=== PATIENT | female | born 1995 | race Caucasian/White ===

== ENCOUNTER 2020-01-23 09:54 | Outpatient (CLI) | payer OTHER ==
--- NOTE | 2020-01-23 10:25 | ULT ---
EXAM: US Abdominal CLINICAL HISTORY: Vomiting. Nausea.. COMPARISON: None. FINDINGS: Pancreas: Visualized pancreatic parenchyma has a normal echotexture. IVC: Visualized IVC has a normal caliber. Aorta: Visualized aorta has a normal caliber. Liver:Appropriate hepatic parenchymal echotexture. No hepatic masses or intrahepatic biliary dilatati on. Contour of the hepatic margin is maintained. Right hepatic lobe measures 19.2 cm. Gallbladder: No sonographic evidence of cholelithiasis, gallbladder wall thickening or pericholecysti c fluid. Hickey's sign:Negative. CBD: 0.35 cm common bile duct diameter. Portal vein: Patent. Appropriate directional flow. Right kidney: Normal cortical echotexture. No hydronephrosis Right kidney measuring 10.7 x 3.9 x 4. 0 cm in length. Left kidney: Normal cortical echotexture. No hydronephrosis. Left kidney measuring 4.7 x 7.5 x 10.9 cm in length Spleen: Normal echotexture, measuring 9.9 cm. IMPRESSION: Unremarkable exam. Transcribed Date/Time: 01/23/2020 11:28 AM
--- NOTE | 2020-01-23 10:58 | ULT ---
EXAM: US Pelvic Transvag W Doppler PROVIDED CLINICAL HISTORY: Right lower quadrant pain COMPARISON: None FINDINGS: The uterus measures about 6.6 x 2.9 x 4.2 cm and demonstrates a normal sonographic appearance. Endome trial thickness is about 7 mm. The left ovary was not discretely identified. The right ovary appears sonographically normal. Color D oppler and spectral analysis of the right ovarian waveforms demonstrates normal flow. There is a dilated blind-ending tubular structure with bowel signature in the right lower quadrant wh ich demonstrates noncompressibility. There is ill-defined surrounding diminished echogenicity measuring at least 6.9 cm. IMPRESSION: Findings highly suspicious for acute appendicitis with periappendiceal abscess/phlegmon. Findings wer e communicated to Dr. Abreu 10:55 AM 01/23/2020. The patient was directed to the emergency department at the request of the referring clinician.
== END 2020-01-23 09:55 | disposition home or self-care (01) ==
LOC: BICULT 09:54
PROVIDERS: ATTEND Family Medicine
DX: R10.31 Right lower quadrant pain (principal)
CPT/HCPCS: 76856; 93975

== ENCOUNTER 2020-01-23 11:31 | Inpatient (IN) | payer OTHER ==
[~2020-01-23 11:31] MED LIST: Iopamidol-370 76% 500 ML 1 ML ONE
[2020-01-23 12:25] LABS: #Eosinphils 0.2 thou/uL (0.0-0.7); #Lymphocytes 1.7 thou/uL (1.20-3.40); #Neutrophils 11.2 thou/uL (1.40-6.50); %Basophils 0.3 % (0.0-1.0); %Eosinophils 1.2 % (0.0-10.0); %Lymphocytes 11.8 % (21.0-51.0); %Monocytes 6.8 % (0.0-10.0); %Neutrophils 79.9 % (42.0-75.0); Hemoglobin 12.3 g/dL (12.0-16.0); Mean Corpuscular HGB CONC 32.8 g/dL (32.0-36.0); Mean Corpuscular Hemoglobin 27.7 pg (27.0-31.0); Mean Corpuscular Volume 84.5 fL (78.0-98.0); Mean Platelet Volume 7.1 fL (7.4-10.4); Platelet Count 564 thou/uL (130-400); RBC Distribution Width 12.8 % (11.5-14.5); Red Blood Cell (RBC) Count 4.42 mill/uL (4.20-5.40)
[2020-01-23 12:46] LABS: ALT (SGPT) 482 U/L (8-55); AST (SGOT) 204 U/L (5-34); Albumin 3.7 g/dL (3.5-5.0); Alkaline Phosphatase 271 U/L (40-110); Anion Gap 12 mmol/L (10-20); BUN (Urea Nitrogen) 5 mg/dL (7.0-18.7); Bilirubin, Total 1.1 mg/dL (0.2-1.2); Calc. Creatinine Clearance 0 mL/min (70-130); Calcium 9.2 mg/dL (7.8-10.44); Carbon Dioxide 25 mmol/L (22-29); Chloride 100 mmol/L (98-107); Estimated GFR-MDRD Greater than 90; Globulin 4.6 g/dL (2.4-3.5); Glucose 91 mg/dL (70-105); Protein, Total 8.3 g/dL (6.0-8.3); Sodium 133 mmol/L (136-145)
[2020-01-23 13:51] LABS: BHCG - Serum Negative (NEGATIVE); Pregs Control Background? CLEAR/WHITE (CLR/WHITE); Pregs Control Bar Appear? YES (CONTROL BAR)
--- NOTE | 2020-01-23 14:36 | CT ---
CT ABDOMEN AND PELVIS WITH IV CONTRAST: INDICATION: Right lower quadrant pain. FINDINGS: Liver unremarkable. There is a splenic cyst in the superior spleen measuring approximately 1.3 cm. Pancreas unremarkable. Adrenal glands and kidneys unremarkable. Small bowel loops show nonspecific fluid-filled distention. There is inflammatory process in the right lower quadrant. This involves the distal and terminal ile um and the cecum. There is a fluid-dense collection with surrounding enhancement with internal gas i ndicating a small abscess measuring in the 2.5 cm range. Appendix is not well delineated within this inflammatory process. There are enlarged mesenteric lymph nodes throughout the mesentery most promi nent in the right lower quadrant. Images through the pelvis show a mildly distended bladder and unremarkable uterus. A small amount of fluid in the cul-de-sac. IMPRESSION: Severe inflammatory process in the right lower quadrant involving the distal and terminal ileum and c ecum. Evidence of a small abscess collection. Findings would most likely represent ruptured appendi citis. Findings related to Dr. Humphreys. CODE CR
[2020-01-23] MEDS ORDERED: Dextrose 5% in Water 1,000 ML IV PRN (15:29)
[2020-01-23] MEDS ORDERED: Dextrose 50% Abboject 50 ML SYRINGE SLOW IVP PRN (15:29)
[2020-01-23] MEDS ORDERED: traMADol HCl 50 MG TAB PO PRN (15:35)
[2020-01-23] MEDS ORDERED: Morphine 4 MG/ML VIAL SLOW IVP PRN (15:35)
[2020-01-23] MEDS ORDERED: Acetaminophen 325 MG TAB PO PRN (15:35)
[2020-01-23] MEDS ORDERED: Piperacillin/Tazobactam 4.5 GM VIAL ONE (15:40)
--- NOTE | 2020-01-23 16:46 | HP ---
HISTORY OF PRESENT ILLNESS: Ms. Melendez is a 24-year-old woman who presented to the emergency department, complaining of insidious onset periumbilical abdominal pain, which started approximately 1 month ago. At onset, pain was described as a dull ache, rated at 4/10. The pain is associated with intermittent episodes of nausea and emesis. The patient has taken [id number]-[id number] remedies and failed to resolve the abdominal pain. Over the last 1 week, the pain has intensified and has localized to the right lower quadrant. Pain is now associated with diarrhea. The patient denies any unexplained weight loss. She did have a bout of fever, maximum temperature of 102 degrees Fahrenheit, about 2 weeks ago. She now rates her pain at 8/10 to 9/10. PAST MEDICAL HISTORY: She denies any previous medical problems. PAST SURGICAL HISTORY: She denies any previous surgeries. 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 She admits to occasional intake of ethanol in moderate amounts, but denies any cigarette smoking or illicit drug abuse. FAMILY HISTORY: She denies any family history of diabetes mellitus, hypertension, heart disease, inflammatory bowel disease, or cancer. CURRENT MEDICATIONS: None except for oral control pills. ALLERGIES: TO [employer], WHICH GIVES OUT HIVES. REVIEW OF SYSTEMS: Ten-point review of systems essentially unremarkable except as stated in past medical history and chief complaint. PHYSICAL EXAMINATION: GENERAL: This reveals a 24-year-old normally developed woman who is otherwise coherent and interactive and appears stated age. The patient is alert and oriented x3. She appears to be in no acute distress at the time of my evaluation. VITAL SIGNS: Blood pressure 117/79, pulse is 116, respiratory rate is 16, temperature is 98.4 degrees Fahrenheit, and oxygen saturation 97% on room air. HEENT: Normocephalic and atraumatic. HEART: Regular rate with sinus tachycardia. No murmurs or gallops auscultated. LUNGS: Clear to auscultation bilaterally. Breathing regular and nonlabored. ABDOMEN: Soft with right lower quadrant tenderness to palpation. She has no abdominal distention present. She has a negative Rovsing sign. Liver and spleen otherwise nonpalpable below costal margins. NEUROLOGIC: No focal deficits present. LABORATORY FINDINGS: Today includes a CBC with 14,000 white blood cells, hemoglobin and hematocrit 12.3 and 37.4 respectively, and platelet count is 564,000. Metabolic profile: Sodium 133, potassium 4.0, chloride is 100, bicarb is 25, BUN is 5, creatinine 0.74, and glucose 91. Total bilirubin is 1.1, AST and ALT are elevated at 204 and 482 respectively, and alkaline phosphatase is also elevated at 271. I have personally reviewed all radiographic studies including abdominal ultrasound, which is essentially unremarkable. The common bile duct is normal in diameter for this patient's age at 3.5 mm. No other acute intra-abdominal pathology is evident on the basis of the ultrasound. CT scan of the abdomen and pelvis, which was obtained today, reveals severe inflammation of the right lower quadrant involving the distal and terminal ileum as well as the cecum. There is a 2.5-cm fluid collection adjacent to the cecum, likely an abscess. The appendix itself is not visualized. IMPRESSION: Likely acute appendicitis with rupture and periappendiceal abscess. PLAN: 1. Broad-spectrum antibiotic therapy. The patient will be taken to the operating room for laparoscopic appendectomy and drainage of periappendiceal abscess. 2. The above findings and plan has been discussed with the patient who indicates understanding of information given. 3. I have answered her questions. 4. The patient is going to consent for this admission and surgical intervention. Job ID: [id number]
[2020-01-23 17:31] LABS: Bilirubin Negative (Negative); Blood, Urine Negative (Negative); Clarity Clear (Clear); Glucose, Urine (Dipstick) Normal (Negative); Ketone, Urine Negative (Negative); Leukocyte Negative Leu/uL (Negative); Nitrite Negative (Negative); Protein, Urine (Dipstick) Negative (Neg-Trace); Urobilinogen Normal mg/dL (Less than 2)
[2020-01-23 17:33] LABS: Specific Gravity, Urine 1.044 (1.002-1.036)
[2020-01-23] MEDS: Sodium Chloride 0.9% 1,000 ML IV SCH (18:13)
[2020-01-23] MEDS: Ibuprofen 100 MG/5 ML UDCUP PO SCH (18:29)
[2020-01-23 18:39] VITALS: BMI 25.7
[2020-01-23] MEDS: Enoxaparin Sodium 40 MG/0.4 ML SYRINGE SC SCH (20:10)
[2020-01-23] MEDS: Piperacillin/Tazobactam 3.375 GM in Sodium Chloride 0.9% 100 ML IVPB SCH (21:09)
[2020-01-24] MEDS: Ibuprofen 100 MG/5 ML UDCUP PO SCH ×3 (01:12→18:26)
[2020-01-24] MEDS: Piperacillin/Tazobactam 3.375 GM in Sodium Chloride 0.9% 100 ML IVPB SCH ×4 (04:35→22:38)
[2020-01-24] MEDS: Sodium Chloride 0.9% 1,000 ML IV SCH ×3 (04:35→21:03)
[2020-01-24 08:38] LABS: #Eosinphils 0.2 thou/uL (0.0-0.7); #Lymphocytes 1.3 thou/uL (1.20-3.40); #Monocytes 0.6 thou/uL (0.11-0.59); #Neutrophils 4.1 thou/uL (1.40-6.50); %Basophils 0.4 % (0.0-1.0); %Eosinophils 3.4 % (0.0-10.0); %Lymphocytes 21.5 % (21.0-51.0); %Monocytes 9.8 % (0.0-10.0); Hemoglobin 11.2 g/dL (12.0-16.0); Mean Corpuscular HGB CONC 33.1 g/dL (32.0-36.0); Mean Corpuscular Volume 84.4 fL (78.0-98.0); Mean Platelet Volume 7.3 fL (7.4-10.4); Platelet Count 427 thou/uL (130-400); RBC Distribution Width 12.7 % (11.5-14.5); Red Blood Cell (RBC) Count 3.99 mill/uL (4.20-5.40); White Blood Cell (WBC) Count 6.3 thou/uL (4.8-10.8)
[2020-01-24 08:39] LABS: Anion Gap 13 mmol/L (10-20); BUN (Urea Nitrogen) 4 mg/dL (7.0-18.7); Calc. Creatinine Clearance 139 mL/min (70-130); Calcium 8.5 mg/dL (7.8-10.44); Carbon Dioxide 23 mmol/L (22-29); Chloride 107 mmol/L (98-107); Estimated GFR-MDRD Greater than 90; Glucose 86 mg/dL (70-105); Sodium 139 mmol/L (136-145)
[2020-01-24] MEDS ORDERED: Ketorolac Tromethamine 30 MG/ML VIAL ONE (08:56)
[2020-01-24] MEDS ORDERED: PHENYLEPHRINE-NS 100 MCG/ML 10 ML SYRINGE ONE (08:56)
[2020-01-24] MEDS ORDERED: Ondansetron PF 4 MG/2 ML Vial ONE (08:56)
[2020-01-24] MEDS ORDERED: Lidocaine 1% PF 5 ML VIAL ONE (08:56)
[2020-01-24] MEDS ORDERED: Glycopyrrolate 0.2 MG/ML 5 ML SYRINGE ONE (08:56)
[2020-01-24] MEDS ORDERED: Dexamethasone 20 MG/5 ML VIAL ONE (08:56)
[2020-01-24] MEDS ORDERED: PROPOFOL 200 MG/20 ML VIAL ONE (08:56)
[2020-01-24] MEDS ORDERED: Rocuronium Bromide 10 MG/ML (10ML VIAL) ONE (08:56)
[2020-01-24] MEDS ORDERED: FLU VACC QS2020-21(6MOS UP)/PF 60 MCG/0.5 ML SYRINGE IM ONE (09:00)
[2020-01-24] MEDS ORDERED: Promethazine HCl 25 MG/ML VIAL SLOW IVP PRN ×2 (10:01→15:56)
[2020-01-24] MEDS ORDERED: Promethazine HCl 25 MG/ML VIAL IM PRN ×2 (10:01→15:56)
[2020-01-24] MEDS ORDERED: Meperidine HCl/PF 25 MG/ML VIAL SLOW IVP PRN ×2 (10:01→15:56)
[2020-01-24] MEDS ORDERED: Ondansetron HCl/PF 4 MG/2 ML Vial IVP PRN ×2 (10:01→15:56)
[2020-01-24] MEDS ORDERED: Midazolam HCl 2 mg/2 ml Vial ONE (11:27)
[2020-01-24] MEDS ORDERED: Fentanyl 100 MCG/2 ML VIAL ONE (11:27)
[2020-01-24] MEDS ORDERED: HYDROmorphone 0.5 MG/0.5 ML SYRINGE ONE ×2 (11:27→13:45)
[2020-01-24] MEDS ORDERED: Lidocaine 2% Jelly 5 ML TUBE ONE (11:27)
[2020-01-24] MEDS ORDERED: Bupivacaine/Epinephrine 0.25% 30 ML VIAL ONE (11:58)
[2020-01-24] MEDS ORDERED: Piperacillin/Tazobactam 3.375 GM VIAL ONE (12:38)
[2020-01-24] MEDS ORDERED: PACU-Morphine 4MG/ML VIAL SLOW IVP PRN (15:56)
[2020-01-24] MEDS ORDERED: Morphine Sulfate 2 MG/ML SYRINGE SLOW IVP PRN (15:56)
[2020-01-24] MEDS: Ketorolac Tromethamine 30 MG/ML VIAL IVP SCH ×2 (18:10→23:10)
[2020-01-24] MEDS: traMADol HCl 50 MG TAB PO PRN (20:56)
[2020-01-24] MEDS: Enoxaparin Sodium 40 MG/0.4 ML SYRINGE SC SCH (20:57)
--- NOTE | 2020-01-24 21:57 | OP ---
DATE OF PROCEDURE: 01/24/2020 PREOPERATIVE DIAGNOSIS: Acute chronic appendicitis with periappendiceal abscess. POSTOPERATIVE DIAGNOSIS: Acute chronic appendicitis with periappendiceal abscess. OPERATION PERFORMED: Laparoscopic drainage of periappendiceal abscess and debridement of multiple intraperitoneal necrotic tissue. Appendix was not identified. ANESTHESIA: General endotracheal. ESTIMATED BLOOD LOSS: 30 mL. FLUIDS: 2000 mL crystalloids. COUNTS: Sponge and instrument counts were verified as correct x2. COMPLICATIONS: None apparent at the time of operation. INDICATIONS FOR OPERATION: A 24-year-old woman who presented with approximately one month history of what started as a periumbilical abdominal pain, which has settled in the right lower quadrant. One week prior to this admission, the patient presented with worsening abdominal pain associated with fever, nausea and vomiting. Clinical and radiographic examination were consistent with significant amount of an inflammation involving the terminal ileum and cecum. Appendix was not identified. However, there was a small abscess anterior to the cecum in the right lower quadrant. This patient was brought to the operating room for laparoscopic appendectomy and drainage of pelvic abscess. Findings are consistent with extensive amount of inflammation involving the distal ileum and cecum. There was indeed a small abscess anterior to the cecum, which was drained. Cultures were taken. Extensive amount of necrotic tissue was debrided in a piecemeal fashion. However, the appendix itself was not identified. DESCRIPTION OF PROCEDURE: Informed consent was obtained from the patient, who was brought to the operating room, placed in supine position. Following general anesthesia, abdomen was sterilely prepped and draped in usual fashion. The skin below the umbilicus was infiltrated with 0.25% Marcaine with epinephrine. A small curvilinear infraumbilical incision was made using 11 scalpel. Umbilical stalk was grasped with Charito and elevated. Veress needle was inserted through the incision and placed in the peritoneal cavity through which the abdomen was insufflated with 3 L of CO2 gas. Intraabdominal pressure noted at 2 mmHg. Following abdominal insufflation, Veress needle was removed and a 5 mm trocar introduced using a Visiport under laparoscopy. Laparoscopy confirmed proper placement of the port. no injuries to underlying structures. Additional laparoscopy reveals right lower quadrant completely encased by omental adhesions. Under direct laparoscopy, two 5 mm suprapubic and left lower quadrant ports were placed after the overlying skin were infiltrated with 0.25% Marcaine with epinephrine and appropriate incision was made. The patient was placed in a Trendelenburg position, rotated to her left. I introduced a Prestige grasper through the left lower quadrant port site, using this to bluntly take down omental adhesions. The distal ileum was completely welded to the right lateral gutter and was bluntly taken down using the Prestige grasper in addition to Endo suction catheter. Once the distal ileum was identified and mobilized off the right lateral gutter it was followed to the markedly thick-walled and inflamed cecum. There was extensive amount of necrotic tissue which were sharply debrided off the cecum and small bowel. A small abscess cavity was entered anterior to the cecum. Cultures were taken. This was irrigated and cleared using suction. Multiple attempts to identify the appendix was unsuccessful. In fact. we were able to mobilize the cecum medially. I did not see any retrocecal appendix. Small bowel was run from the ileocecal junction down to proximal 2 feet, finding no Meckel diverticulum. Finding no other pathology laparoscopy was terminated. A markedly inflamed uterus was noted in anatomic location. No pelvic abscesses were present. The left lower quadrant port was extended to allow removal of multiple necrotic tissues which were delivered of the abdominal cavity using the EndoCatch. Once laparoscopy was terminated, fascia of the left lower quadrant port site was closed using Endo closure device and 0 Vicryl suture on the laparoscopy. The abdomen was desufflated. All ports and instruments were removed and accounted for. Prior to removal of the ports, a #19 Alfred drain was introduced into the right lower quadrant with the tip residing in the right lateral gutter/the infra hepatic space. The drain was allowed to exit the abdominal cavity through the suprapubic port site. This was secured to anterior abdominal wall using 2-0 silk suture. All skin incisions were closed using 4-0 Monocryl suture in subcuticular fashion. Dermabond was applied over incisional closure. The patient tolerated the operation without any apparent complication and was returned to recovery room in satisfactory condition. Job ID: [id number]
[2020-01-24] MEDS ORDERED: Ondansetron PF 4 MG/2 ML Vial IVP PRN (22:43)
--- NOTE | 2020-01-25 00:59 | PRG ---
DATE OF SERVICE: 01/24/2020 SUBJECTIVE: The patient was seen during evening rounds, awake, alert, no distress. The patient is postop day 0, status post laparoscopic drainage of a periappendiceal abscess and debridement of multiple intraperitoneal necrotic tissue. The patient is tolerating a regular diet at this time. The patient reports pain after the nurse milked the STAN drain. OBJECTIVE: VITAL SIGNS: Stable, afebrile. GENERAL: Well-appearing young female, awake, alert, in no distress. RESPIRATORY: Good inspiratory and expiratory effort. No respiratory distress. ABDOMEN: Soft, mild tenderness with palpation, no peritoneal signs, nondistended. STAN drain in place with minimal output. PLAN: Continue supportive care and pain regimen. Continue clear liquid diet as tolerated. Increase activity. Job ID: [id number]
[2020-01-25] MEDS: Piperacillin/Tazobactam 3.375 GM in Sodium Chloride 0.9% 100 ML IVPB SCH ×4 (04:59→21:00)
[2020-01-25] MEDS: Ketorolac Tromethamine 30 MG/ML VIAL IVP SCH ×4 (05:01→23:05)
[2020-01-25 05:21] LABS: #Eosinphils 0.1 thou/uL (0.0-0.7); #Lymphocytes 1.9 thou/uL (1.20-3.40); #Monocytes 0.8 thou/uL (0.11-0.59); #Neutrophils 4.5 thou/uL (1.40-6.50); %Basophils 0.5 % (0.0-1.0); %Eosinophils 1.2 % (0.0-10.0); %Lymphocytes 25.8 % (21.0-51.0); %Monocytes 10.4 % (0.0-10.0); %Neutrophils 62.2 % (42.0-75.0); Hemoglobin 10.6 g/dL (12.0-16.0); Mean Corpuscular HGB CONC 31.6 g/dL (32.0-36.0); Mean Corpuscular Hemoglobin 27.2 pg (27.0-31.0); Mean Corpuscular Volume 86.2 fL (78.0-98.0); Mean Platelet Volume 7.5 fL (7.4-10.4); Platelet Count 414 thou/uL (130-400); RBC Distribution Width 12.7 % (11.5-14.5); Red Blood Cell (RBC) Count 3.89 mill/uL (4.20-5.40); White Blood Cell (WBC) Count 7.2 thou/uL (4.8-10.8)
[2020-01-25 05:45] LABS: ALT (SGPT) 308 U/L (8-55); AST (SGOT) 130 U/L (5-34); Albumin 2.9 g/dL (3.5-5.0); Alkaline Phosphatase 184 U/L (40-110); Anion Gap 11 mmol/L (10-20); BUN (Urea Nitrogen) 4 mg/dL (7.0-18.7); Bilirubin, Direct 0.5 mg/dL (0.1-0.3); Bilirubin, Total 0.8 mg/dL (0.2-1.2); Calc. Creatinine Clearance 150 mL/min (70-130); Calcium 8.2 mg/dL (7.8-10.44); Carbon Dioxide 24 mmol/L (22-29); Chloride 106 mmol/L (98-107); Estimated GFR-MDRD Greater than 90; Glucose 90 mg/dL (70-105); Phosphorus 4.4 mg/dL (2.3-4.7); Potassium 4.1 mmol/L (3.5-5.1); Protein, Total 6.3 g/dL (6.0-8.3); Sodium 137 mmol/L (136-145)
[2020-01-25] MEDS: Sodium Chloride 0.9% 1,000 ML IV SCH ×2 (05:55→18:01)
[2020-01-25] MEDS: traMADol HCl 50 MG TAB PO PRN (09:03)
[2020-01-25] MEDS: traMADol HCl 50 MG TAB PO SCH ×3 (11:32→23:05)
[2020-01-25] MEDS: Acetaminophen 500 MG TAB PO SCH ×3 (11:33→23:04)
[2020-01-25] MEDS: Enoxaparin Sodium 40 MG/0.4 ML SYRINGE SC SCH (20:59)
[2020-01-25] MEDS: Famotidine 20 MG TAB PO SCH (21:59)
--- NOTE | 2020-01-26 00:04 | PRG ---
DATE OF SERVICE: 01/25/2020 SUBJECTIVE: Patient was seen during evening rounds, resting comfortably. The patient is postop day #1 status post laparoscopic drainage of a periappendiceal abscess. The patient's nurse reports that she ambulated several times today. Also reports having bowel movements. The patient's pain is well controlled. The patient is tolerating a clear-liquid diet. PLAN: Continue pain regimen and supportive care. Continue to have patient ambulate frequently. We will increase diet in the morning as tolerated. We will discontinue the patient's maintenance IV fluids as she is tolerating her clear liquids. Job ID: [id number]
[2020-01-26] MEDS: Piperacillin/Tazobactam 3.375 GM in Sodium Chloride 0.9% 100 ML IVPB SCH ×2 (04:59→09:02)
[2020-01-26] MEDS: Ketorolac Tromethamine 30 MG/ML VIAL IVP SCH (05:02)
[2020-01-26] MEDS: traMADol HCl 50 MG TAB PO SCH ×2 (05:02→11:17)
[2020-01-26] MEDS: Acetaminophen 500 MG TAB PO SCH ×2 (05:02→10:10)
[2020-01-26] MEDS ORDERED: Saccharomyces boulardii 250 MG CAP PO SCH (09:00)
[2020-01-26] MEDS: Famotidine 20 MG TAB PO SCH (09:02)
[2020-01-26] MEDS ORDERED: Ibuprofen 200 MG TAB PO PRN (09:08)
[2020-01-26] MEDS: metroNIDAZOLE 500 MG TAB PO SCH ×2 (10:10→15:07)
--- NOTE | 2020-01-26 12:56 | PQF ---
CLINICAL DOCUMENTATION CLARIFICATION FORM: Dear Dr. PHILIPP MUNSON Date: 01-26-20 Please exercise your independent, professional judgment in responding to the clarification form. Clinical indicators are provided on the bottom of this form for your review. Please check appropriate box(es): [ ] Excisional Debridement: [ ] Excised [ ] Cut away [ ] Other: Depth / layer: (deepest layer of debridement): [ ] Skin [ ] Subcutaneous [ ] Fascia [ ] Muscle [ ] Tendon [ ] Bone Appearance of wound: (e.g., down to fresh bleeding tissue, etc.) Margins: (please specify): / x x Instruments used: [ ] Scissors [ ] Scalpel [ ] Other: [ ] Non-excisional Debridement: (Removal by crushing, brushing, chemical, or washing) Depth / layer: (deepest layer of debridement): [ ] Skin [ ] Subcutaneous [ ] Fascia [ ] Muscle [ ] Tendon [ ] Bone [ ] Incision and Drainage only (No Debridement): Depth: [ ] Skin [ ] Subcutaneous [ ] Fascia [ ] Muscle [ ] Tendon [ ] Bone [ ] Other procedure diagnosis [ ] Unable to determine For continuity of documentation, please document condition throughout progress notes and discharge summary. Thank You. To be completed by CDI/Coding staff for physician review: CLINICAL INDICATORS - SIGNS / SYMPTOMS / LABS / RESULTS AND LOCATION IN EMR: OPERATIVE NOTE 01-23-20 DR. MUNSON: LAPAROSCOPIC DRAINAGE OF PERIAPPENDICEAL ABSCESS AND DEBRIDEMENT OF MULTIPLE INTRAPERITONEAL NECROTIC TISSUE. OPERATIVE NOTE 01-23-20 DR. MUNSON: THERE WAS EXTENSIVE AMOUNT OF NECROTIC TISSUE WHICH WERE SHARPLY DEBRIDED OFF THE CECUM AND SMALL BOWEL. RISK FACTORS / RESULTS AND LOCATION IN EMR: OPERATIVE NOTE 01-23-20 DR. MUNSON: ACUTE CHRONIC APPENDICITIS WITH PERIAPPENDICEAL ABSCESS TREATMENTS / RESULTS AND LOCATION IN EMR: OPERATIVE NOTE 01-23-20 DR. OHAJU: LAPAROSCOPIC DRAINAGE OF PERIAPPENDICEAL ABSCESS AND DEBRIDEMENT OF MULTIPLE INTRAPERITONEAL NECROTIC TISSUE. CDS Signature: Johanny Becerra Phone #: [phone] Date: 01-26-20 This is a permanent part of the Medical Record [facility]
[2020-01-26 16:23] VITALS: BP 113/80; TEMP 98.5
--- NOTE | 2020-01-27 10:46 | DIS ---
DATE OF ADMISSION: 01/23/2020 DATE OF DISCHARGE: 01/26/2020 ADMISSION DIAGNOSIS: Egcxv-[id number]-svhghjo appendicitis. DISCHARGE DIAGNOSIS: Rfpkw-qu-mvqfunu appendicitis. CONSULTING PHYSICIAN: None. PROCEDURES: The patient went to the OR on January 24, 2020, and had a laparoscopic drainage of periappendiceal abscess and debridement of multiple intraperitoneal necrotic tissue. HOSPITAL COURSE: The patient is a 24-year-old female presented to the emergency department after having several weeks of intermittent periumbilical and then right lower quadrant pain. She was taken to the OR the next day for xrhbf-gc-nueinbv appendicitis and was found to have multiple periappendiceal abscesses. She also had a laparoscopic drainage of multiple intra-abdominal necrotic tissue. Postoperatively, she was placed on IV antibiotics. Cultures were sent. The patient eventually was advanced to a clear liquid diet and a regular diet. She was ultimately discharged on Flagyl and levofloxacin for a total of 10 days based on her culture results. At the time of discharge, the patient's pain was well controlled. She was tolerating a regular diet, ambulating without difficulties, and passing flatus. Her STAN drain was discontinued on the day of discharge. She was discharged with followup in clinic in [address] scan of the abdomen and pelvis with p.o. and IV contrast. DISCHARGE DISPOSITION: Home. DISCHARGE CONDITION: Satisfactory. PHYSICAL EXAMINATION: VITAL SIGNS: Temperature 98.7, pulse 70, respirations 14, oxygen saturation 98% on room air, blood pressure 128/89. GENERAL: Well-appearing young female, standing up at the edge of the bed with no signs of acute distress. PULMONARY: Equal chest rise and fall. No signs of acute respiratory distress. CARDIAC: Regular rate and rhythm. GASTROINTESTINAL: Soft, minimally distended, and nontender. NEUROLOGIC: GCS is 15. DISCHARGE INSTRUCTIONS: The patient was discharged home. Activity as tolerated. Regular diet. No therapy needs. She will have incentive spirometry. DISCHARGE MEDICATIONS: Include: 1. Tylenol. 2. Ibuprofen. 3. Levofloxacin. 4. Flagyl. 5. Florastor. 6. Tramadol. 7. The patient can restart her home Loryna. 8. She will also receive a prescription for Zofran for a total of 3 days. FOLLOWUP APPOINTMENTS: The patient will follow up with Dr. Wilkins on February 09, 2020, at 10:30 a.m. She is to complete a CT scan of the abdomen and pelvis with p.o. and IV contrast beforehand. This is a summary of the patient's hospitalization. For full details, please see her medical record in its entirety. The patient was seen and examined by Dr. Wilkins and myself on the day of discharge. The [employer] prescription monitoring system was accessed and the patient was discharged home with tramadol as deemed appropriate. The dosage and medication prescribed for her postoperative pain and used to control her pain inpatient. Job ID: [id number]
--- NOTE | 2020-01-30 09:19 | PQF ---
CLINICAL DOCUMENTATION CLARIFICATION FORM: Dear : Duane Humphreys Date / Time: 01/30/2020 09:18 Please exercise your independent, professional judgment in responding to the clarification form. Clinical indicators are provided on the bottom of this form for your review Can you please clarify the diagnosis being treated? Please check appropriate box(es): [ ] Associated Diagnosis: Acute renal failure [ ] Not clinically significant laboratory findings [ ] Other diagnosis [ ] Unable to determine In addition, please specify: Present on Admission (POA): [ ] Yes [ ] No [ ] Unable to determine Physician Signature: Date/Time: For continuity of documentation, please document condition throughout progress notes and discharge summary. Thank You. To be completed by CDI/Coding staff for physician review: Present Clinical Indicators - Signs / Symptoms / Labs Results and Location in Medical Record [x] BUN=5 Creatinine=0.74 GFR=Greater than 90 Laboratory 01/22 [x] complaining of insidius onset periumblical abdominal pain HP 01/22 [x] Pain is associated with diarrhea HP 01/22 Present Risk Factors Results and Location in Medical Record [x] Acute on chronic appendicitis with abscess OP Note 01/23 [x] s/p lap drainage and debridement of necrotic tissue OP Note 01/23 Present Treatments Results and Location in Medical Record [x] IVF JUN 13 [x] Sodium Chloride 100ml IV JUN 13 [x] Laboratory Monitoring Collected 01/22 CDS/Hand Carver Signature:Felicity Blake Phone #: ext [phone] Date/Time: 01/30/2020 09:18 This is a permanent part of the Medical Record [facility]
--- NOTE | 2020-01-30 09:21 | PQF ---
CLINICAL DOCUMENTATION CLARIFICATION FORM: Dear : Duane Humphreys Date / Time: 01/30/20 09:20 Please exercise your independent, professional judgment in responding to the clarification form. Clinical indicators are provided on the bottom of this form for your review Can you please clarify the diagnosis being treated? Please check appropriate box(es): [ ] Associated Diagnosis: Hyponatremia [ ] Not clinically significant laboratory findings [ ] Other diagnosis [ ] Unable to determine In addition, please specify: Present on Admission (POA): [ ] Yes [ ] No [ ] Unable to determine Physician Signature: Date/Time: For continuity of documentation, please document condition throughout progress notes and discharge summary. Thank You. To be completed by CDI/Coding staff for physician review: Present Clinical Indicators - Signs / Symptoms / Labs Results and Location in Medical Record [x] Sodium: [id number] Laboratory 01/22 [x] complaining of insidius onset periumblical abdominal pain HP 01/22 [x] Pain is associated with diarrhea HP 01/22 Present Risk Factors Results and Location in Medical Record [x] Acute on chronic appendicitis with abscess OP Note 01/23 [x] s/p lap drainage and debridement of necrotic tissue OP Note 01/23 Present Treatments Results and Location in Medical Record [x] IVF MAR 01/22 [x] Sodium Chloride 100ml IV MAR 01/22 [x] Laboratory Monitoring Collected 01/22 CDS/Sales Market Leader Signature:Felicity Blake Phone #: ext [phone] Date/Time: 01/30/2020 09:20 This is a permanent part of the Medical Record [facility]
--- NOTE | 2020-01-31 10:17 | PQF ---
CLINICAL DOCUMENTATION CLARIFICATION FORM: Dear Dr. PHILIPP MUNSON Date: 01-26-20 Please exercise your independent, professional judgment in responding to the clarification form. Clinical indicators are provided on the bottom of this form for your review. Please check appropriate box(es): [ ] Excisional Debridement: [ ] Excised [ ] Cut away [ ] Other: Depth / layer: (deepest layer of debridement): [ ] Skin [ ] Subcutaneous [ ] Fascia [ ] Muscle [ ] Tendon [ ] Bone Appearance of wound: (e.g., down to fresh bleeding tissue, etc.) Margins: (please specify): / x x Instruments used: [ ] Scissors [ ] Scalpel [ ] Other: [ ] Non-excisional Debridement: (Removal by crushing, brushing, chemical, or washing) Depth / layer: (deepest layer of debridement): [ ] Skin [ ] Subcutaneous [ ] Fascia [ ] Muscle [ ] Tendon [ ] Bone [ ] Incision and Drainage only (No Debridement): Depth: [ ] Skin [ ] Subcutaneous [ ] Fascia [ ] Muscle [ ] Tendon [ ] Bone [ x ] Other procedure diagnosis __drainage of peritoneal abscess [ ] Unable to determine For continuity of documentation, please document condition throughout progress notes and discharge summary. Thank You. To be completed by CDI/Coding staff for physician review: CLINICAL INDICATORS - SIGNS / SYMPTOMS / LABS / RESULTS AND LOCATION IN EMR: OPERATIVE NOTE 01-23-20 DR. MUNSON: LAPAROSCOPIC DRAINAGE OF PERIAPPENDICEAL ABSCESS AND DEBRIDEMENT OF MULTIPLE INTRAPERITONEAL NECROTIC TISSUE. OPERATIVE NOTE 01-23-20 DR. MUNSON: THERE WAS EXTENSIVE AMOUNT OF NECROTIC TISSUE WHICH WERE SHARPLY DEBRIDED OFF THE CECUM AND SMALL BOWEL. RISK FACTORS / RESULTS AND LOCATION IN EMR: OPERATIVE NOTE 01-23-20 DR. MUNOSN: ACUTE CHRONIC APPENDICITIS WITH PERIAPPENDICEAL ABSCESS TREATMENTS / RESULTS AND LOCATION IN EMR: OPERATIVE NOTE 01-23-20 DR. MUNSON: LAPAROSCOPIC DRAINAGE OF PERIAPPENDICEAL ABSCESS AND DEBRIDEMENT OF MULTIPLE INTRAPERITONEAL NECROTIC TISSUE. CDS Signature: Johanny Becerra Phone #: [phone] Date: 01-26-20 This is a permanent part of the Medical Record [facility]
== END 2020-01-26 16:15 | disposition home or self-care (01) | DRG 358 ==
LOC: ERS 11:31 → SURG A 17:05
PROVIDERS: ADMIT Neuromusculoskeletal Medicine & OMM; ATTEND Neuromusculoskeletal Medicine & OMM
PROC: 0W9G0ZZ Drainage of Peritoneal Cavity, Open Approach (ICD-10-PCS; principal; 2020-01-24)
DX: K35.33 Acute appendicitis with perforation, localized peritonitis, and gangrene, with abscess (principal); K36 Other appendicitis; Z88.2 Allergy status to sulfonamides
CPT/HCPCS: 36415; 36600; 74177; 80048; 80053; 80076; 81003; 83735; 84100; 84703; 85025; 87070; 87077; 87186; 87205; 88305; 96365; J1100; J1170; J1650; J1885; J2250; J2405; J2543; J2704; J3010; J3490; Q9967

== ENCOUNTER 2020-02-09 07:34 | Outpatient (CLI) | payer OTHER ==
--- NOTE | 2020-02-09 08:28 | CT ---
CT ABDOMEN WITH CONTRAST CT PELVIS WITH CONTRAST: DATE: 02/09/2020 HISTORY: 24-year-old female with peritoneal abscess. Status post appendectomy 2 weeks ago. COMPARISON: 01/23/2020 TECHNIQUE: IV injection of iodinated contrast media: administered. Oral contrast media:Administered FINDINGS: Again demonstrated is the inflammatory process involving the terminal ileum and cecum, with mural thi ckening, surrounding fat stranding consistent with edema, and adjacent unorganized fluid. Whereas previously, the ileal mural thickening involved many centimeters of the ileum, now it only involves a pproximately 5 cm of the terminal ileum, and it appears to be severe. Previously, there was an approximately 2.5 x 3 x 3.5 cm abscess in the ventral portion of the right l ower quadrant peritoneal cavity, broadly abutting the thickened cecum. It is still present, but has decreased in size now to current dimensions of approximately 1.5 x 2.5 x 2.5 cm. It still contains a small amount of gas. It consists mostly of enhancing thick johansen, and only a tiny amount of internal fluid, such that percutaneous CT-guided drainage would be very difficult. Located slightly posterior to that, there is a new 2 x 3 x 2.5 cm spiculated mass with mural enhancem ent and minimal amount of central low attenuation, consistent with a new abscess or phlegmon. Because of its deep location, overlying bowel, and obstruction of access by the right iliac wing, thi s is not amenable to percutaneous needle access. Urinary bladder is empty. No small bowel dilation. Normal kidneys, adrenals, abdominal aorta, pancreas, liver, and spleen, except for a small splenic cy st. Lung bases are clear. No pneumoperitoneum. IMPRESSION: 1) persistent prominent inflammatory process in right lower quadrant of the peritoneal cavity involvi ng terminal ileum and cecum. 2) previously described right lower quadrant anterior intraperitoneal abscess has decreased in size b ut persists. 3) interval development of a new abscess/phlegmon posterior to that one. 4) neither is amenable to percutaneous drainage.
== END 2020-02-09 07:35 | disposition home or self-care (01) ==
LOC: BICCT 07:34
PROVIDERS: ATTEND Surgery
DX: K65.1 Peritoneal abscess (principal); K52.9 Noninfective gastroenteritis and colitis, unspecified
CPT/HCPCS: 74177